=== PATIENT | male | born 1995 | race Caucasian/White ===

== ENCOUNTER 2020-09-27 18:12 | Emergency (ER) | payer MEDICAID, OTHER ==
[~2020-09-27] VITALS: Ht 172.7 cm; Wt 65.0 kg
[2020-09-27] MEDS ORDERED: fentaNYL/PF 50MCG/1 ML 2ML syringe IV ONE ×2 (18:35→19:45)
[2020-09-27] MEDS ORDERED: ketorolac trometh. 30mg/ml inj. IV ONE (18:35)
[2020-09-27] MEDS ORDERED: ondansetron/PF 4mg/2ml inj IV ONE (18:35)
--- NOTE | 2020-09-27 18:44 | NUR ---
PT TO XRAY THEN CT.
--- NOTE | 2020-09-27 19:11 | NUR ---
PT BACK FROM CT/XRAY
[2020-09-27] MEDS ORDERED: propofol 10mg/ml 20ml vial IV ONE (19:20)
[2020-09-27] MEDS ORDERED: BUPIVAcaine/PF 2.5 mg/ml (0.25%) 30ml vial IJ ONE (19:30)
[2020-09-27] MEDS ORDERED: BUPIVAcaine/PF 2.5mg/ml (0.25%) 10ml vial IJ ONE (19:35)
[2020-09-27] MEDS ORDERED: propofol 1000mg/100ml bottle 100 ML IV ONE (19:57)
--- NOTE | 2020-09-27 20:09 | NUR ---
MODERATE SEDATION WITH LEFT WRIST REDUCTIONN IV PUSH MEDS BY DR KOHLI: PROPOFOL 1953 60MG IV PUSH BY DR KOHLI 1954 40MG IV PUSH BY DR KOHLI 1955 100MG IV PUSH BY DR KOHLI 1958 80MG IV PUSH BY DR KOHLI 2000 60MG IV PUSH BY DR KOHLI.
[2020-09-27] MEDS ORDERED: IBUP-1984 PO (20:34)
[2020-09-27] MEDS ORDERED: ACET-812 PO (20:34)
[2020-09-27] MEDS ORDERED: acetaminophen 325mg tablet PO ONE (20:35)
[2020-09-27 21:01] VITALS: BP 116/73
== END 2020-09-27 21:03 | disposition home or self-care (01) ==
LOC: ER 18:13
DX: S52.592A Other fractures of lower end of left radius, initial encounter for closed fracture (principal); M79.602 Pain in left arm; J45.909 Unspecified asthma, uncomplicated; F32.9 Major depressive disorder, single episode, unspecified; F12.90 Cannabis use, unspecified, uncomplicated; Z90.89 Acquired absence of other organs; Z79.899 Other long term (current) drug therapy; V29.9XXA Motorcycle rider (driver) (passenger) injured in unspecified traffic accident, initial encounter; Y93.89 Activity, other specified; Y92.89 Other specified places as the place of occurrence of the external cause; Y99.8 Other external cause status
CPT/HCPCS: 25605; 70450; 71045; 72125; 73100; 73110; 94799; 96374; 96375; 96376; 99152; 99285; J1885; J2405; J2704; J3010; 94760

== ENCOUNTER 2021-10-24 10:00 | Emergency (ER) | payer BC ==
[~2021-10-24] VITALS: Ht 172.7 cm; Wt 63.6 kg
[~2021-10-24 10:00] MED LIST: ACET-812 PO
[2021-10-24] MEDS ORDERED: dexamethasone sod phosphate 10mg/ml inj IV STA (10:08)
[2021-10-24] MEDS ORDERED: normal saline 1000ML IV soln IVB ONE (10:10)
[2021-10-24] MEDS ORDERED: magnesium 2GM in 50ml NS 50 ML IV ONE (10:10)
[2021-10-24] MEDS ORDERED: metoclopramide 5 mg/ml inj IV ONE (10:10)
[2021-10-24] MEDS ORDERED: ketorolac trometh. 30mg/ml inj. IV ONE (10:10)
[2021-10-24 10:54] LABS: BASOPHILS % (AUTO) 0.3 % (0-1); EOSINOPHILS # (AUTO) 0.3 X10'3 (0-0.9); EOSINOPHILS % (AUTO) 2.3 % (0-6); HEMOGLOBIN 16.7 g/dl (14.0-17.9); LYMPHOCYTES # (AUTO) 0.5 X10'3 (1.1-4.8); LYMPHOCYTES % (AUTO) 3.9 % (21-51); MEAN CORPUSCULAR HEMOGLOBIN 29.2 PG (27.0-31.0); MEAN CORPUSCULAR HGB CONC 32.8 g/dL (33.0-36.5); MEAN CORPUSCULAR VOLUME 88.9 FL (78-98); MEAN PLATELET VOLUME 9.1 FL (7.4-10.4); MONOCYTES # (AUTO) 0.7 X10'3 (0-0.9); MONOCYTES % (AUTO) 5.4 % (2-12); NEUTROPHILS # (AUTO) 12.2 X10'3 (1.8-7.7); NEUTROPHILS % (AUTO) 88.1 % (42-75); PLATELET COUNT 241 X10'3 (140-440); RED BLOOD COUNT 5.74 X10'6 (4.70-6.10); RED CELL DISTRIBUTION WIDTH 13.8 % (11.5-14.5); WHITE BLOOD COUNT 13.8 X10'3 (4.5-11.0)
[2021-10-24] MEDS ORDERED: diltiazem 5mg/ml 5ml inj. IV ONE (10:55)
[2021-10-24 11:13] LABS: ALANINE AMINOTRANSFERASE 22 U/L (12-78); ALBUMIN 4.8 G/DL (3.4-5.0); ALBUMIN/GLOBULIN RATIO 1.3 (1.1-1.5); ALKALINE PHOSPHATASE 76 IU/L (46-116); ANION GAP 8 (8-16); ASPARTATE AMINO TRANSFERASE 15 U/L (10-37); BILIRUBIN,TOTAL 0.6 MG/DL (0.1-1.0); BLOOD UREA NITROGEN 13 MG/DL (7-18); BUN/CREATININE RATIO 11.9 (5.4-32.0); CALCIUM 9.9 MG/DL (8.5-10.1); CHLORIDE 103 MMOL/L (99-107); CREATININE 1.09 MG/DL (0.60-1.10); GLUCOSE 114 MG/DL (70-104); POTASSIUM 4.3 MMOL/L (3.5-5.1); SODIUM 138 MMOL/L (135-145); TOTAL CARBON DIOXIDE 26.9 MMOL/L (24-32); TOTAL PROTEIN 8.4 G/DL (6.4-8.2); eGFR 83 ML/MIN
[2021-10-24 11:38] VITALS: BP 126/76
--- NOTE | 2021-10-24 12:13 | NUR ---
PT REQUESTING TO BE DISCHARGED AND TO BE GIVEN A WORK NOTE. ED JUSTO ROMANO MADE AWARE.
--- NOTE | 2021-10-24 12:47 | NUR ---
PT REQUESTING TO LEAVE STATES "IM ABOUT TO WALK OUT." IV DISCONTINUED AND MAGNESIUM INFUSION STOPPED. ED JUSTO ROMANO AWARE AND STATES HE WILL DISCHARGE PT EVEN THOUGH MAGNESIUM INFUSION ISNT COMPLETED
== END 2021-10-24 12:53 | disposition home or self-care (01) ==
LOC: ER 10:00
DX: G44.009 Cluster headache syndrome, unspecified, not intractable (principal); D72.829 Elevated white blood cell count, unspecified; R42 Dizziness and giddiness; R55 Syncope and collapse; R19.7 Diarrhea, unspecified; R11.2 Nausea with vomiting, unspecified; J45.909 Unspecified asthma, uncomplicated; F32.A Depression, unspecified; F12.90 Cannabis use, unspecified, uncomplicated; Z90.89 Acquired absence of other organs; Z79.899 Other long term (current) drug therapy
CPT/HCPCS: 36415; 74176; 80053; 85025; 96365; 96375; 99284; J1100; J1885; J2765; J3475; J7030